=== PATIENT | male | born 1950 | race Caucasian/White ===

== ENCOUNTER 2022-12-23 13:43 | Outpatient (CLI) | payer OTHER | END 2022-12-23 13:44 | disposition home or self-care (01) | LOC: CSHULT 13:43 | PROVIDERS: ATTEND Internal Medicine Hematology & Oncology | DX: R01.1 Cardiac murmur, unspecified (principal); C91.10 Chronic lymphocytic leukemia of B-cell type not having achieved remission; I51.9 Heart disease, unspecified | CPT/HCPCS: 93306 ==